=== PATIENT | female | born 1990 | race Caucasian/White ===

== ENCOUNTER 2023-10-16 09:44 | Inpatient (IN) | payer OTHER ==
[~2023-10-16] VITALS: Ht 154.9 cm; Wt 65.4 kg
[2023-10-16] VITALS (18 sets, daily range): BP systolic 100–151; BP diastolic 59–87; O2SAT 99
[2023-10-16] MEDS ORDERED: TUMS750C5 PO (10:12)
[2023-10-16] MEDS ORDERED: PEPC1TAB5 PO (10:12)
[2023-10-16] MEDS ORDERED: MULTTAB20 PO (10:12)
[2023-10-16] MEDS ORDERED: HOME MED LIST COMPLETE! XX SCH (10:15)
[2023-10-16] MEDS ORDERED: TRANEXAMIC ACID INJection 1,000 MG in NS 100 ML IV PRN (10:40)
[2023-10-16] MEDS ORDERED: OXYTOCIN INJ 10UNITS/ML 1ML VIAL IM PRN (10:40)
[2023-10-16] MEDS ORDERED: PENICILLIN G POTASSIUM 5 MU IV 5 MU in D5W MINI-BAG PLUS 100 ML IV STA (10:40)
[2023-10-16] MEDS ORDERED: LIDOCAINE 1% MDV 20ML VIAL INFIL PRN (10:40)
[2023-10-16] MEDS ORDERED: OXYTOCIN DRIP 30 UNITS in IV 1 EA IV PRN ×4 (10:40)
[2023-10-16] MEDS ORDERED: LACTATED RINGER'S 1000 ML IV STA (10:40)
[2023-10-16] MEDS ORDERED: METHYLERGONOVINE MALEATE 0.2MG/ML 1ML VIAL IM PRN (10:40)
[2023-10-16] MEDS ORDERED: CARBOPROST TROMETHAMINE 250 MCG/ML AMP IM PRN (10:40)
[2023-10-16 11:24] LABS: HEMOGLOBIN 14.9 g/dl (12.0-15.5); MEAN CORPUSCULAR HEMOGLOBIN 31.6 pg (27.0-33.0); MEAN CORPUSCULAR HGB CONC 34.7 g/dl (32.0-36.5); MEAN CORPUSCULAR VOLUME 91.3 fl (80.0-96.0); PLATELET COUNT, AUTOMATED 238 10^3/uL (150-450); RED BLOOD COUNT 4.71 10^6/uL (4.00-5.40); WHITE BLOOD COUNT 14.2 10^3/uL (4.0-10.0)
[2023-10-16 11:51] LABS: ALT/SGPT 18 U/L (7.0-40); AST/SGOT 26 U/L (<34); BILIRUBIN,TOTAL 0.4 MG/DL (0.3-1.2); CREATININE FOR GFR 0.61 MG/DL (0.55-1.30); GLOMERULAR FILTRATION RATE > 60.0 (>60); LDH LACTATE DEHYDROGENASE 253 U/L (120-246)
[2023-10-16 11:52] LABS: URIC ACID 7.1 MG/DL (3.1-7.8)
[2023-10-16] MEDS ORDERED: DIBUCAINE 1% OINTMENT 30GM TOP PRN (12:00)
[2023-10-16] MEDS ORDERED: OXYTOCIN DRIP 30 UNITS in IV 1 EA IV SCH (12:00)
[2023-10-16] MEDS ORDERED: ACETAMINOPHEN TAB 650MG DOSE (2X325MG) PO PRN (12:00)
[2023-10-16] MEDS ORDERED: DOCUSATE SODIUM 100MG CAPSULE PO PRN (12:00)
[2023-10-16] MEDS ORDERED: METHYLERGONOVINE MALEATE 0.2 MG TAB PO PRN (12:00)
[2023-10-16] MEDS ORDERED: IBUPROFEN 600MG TAB PO PRN (12:00)
[2023-10-16] MEDS ORDERED: HYDROCORTISONE 1% CREAM 30GM TOP PRN (12:00)
[2023-10-16] MEDS: LR 1,000 ML IV SCH ×2 (13:17→18:40)
[2023-10-16] MEDS: IBUPROFEN 800 MG TAB PO PRN ×2 (14:14→22:26)
[2023-10-16] MEDS ORDERED: PEN G POT 3,000,000 UNIT/50 ML 3,000,000 UNIT in IV 1 EA IV SCH (14:40)
[2023-10-16] MEDS ORDERED: ceFAZolin SOD 2 GM in IV 1 EA IV ONE (15:35)
[2023-10-16] MEDS: ACETAMINOPHEN 500 MG TAB PO PRN (15:41)
[2023-10-16] MEDS: METHYLERGONOVINE MALEATE 0.2 MG TAB PO SCH ×2 (15:50→22:26)
[2023-10-17] MEDS: METHYLERGONOVINE MALEATE 0.2 MG TAB PO SCH ×2 (04:07→10:20)
[2023-10-17 06:00] VITALS: BP 110/68; O2SAT 96
[2023-10-17] MEDS: PRENATAL VITAMINS CHEWABLE TABLET PO SCH (08:39)
[2023-10-17] MEDS: IBUPROFEN 800 MG TAB PO PRN ×2 (08:39→20:03)
[2023-10-17 18:00] VITALS: BP 102/66; O2SAT 100
[2023-10-18] MEDS: ACETAMINOPHEN 500 MG TAB PO PRN (05:47)
[2023-10-18 06:00] VITALS: BP 108/57; O2SAT 97
[2023-10-18] MEDS: PRENATAL VITAMINS CHEWABLE TABLET PO SCH (08:43)
== END 2023-10-18 12:50 | disposition home or self-care (01) | DRG 806 ==
LOC: M LDO 09:44 → M LDI 10:40 → M OBS 17:03
PROVIDERS: ADMIT Obstetrics & Gynecology; ATTEND Advanced Practice Midwife
PROC: 10E0XZZ Delivery of Products of Conception, External Approach (ICD-10-PCS; principal; 2023-10-16)
PROC: 0HQ9XZZ Repair Perineum Skin, External Approach (ICD-10-PCS; 2023-10-16)
DX: O24.420 Gestational diabetes mellitus in childbirth, diet controlled (principal); Z37.0 Single live birth; O72.1 Other immediate postpartum hemorrhage; O99.824 Streptococcus B carrier state complicating childbirth; Z3A.39 39 weeks gestation of pregnancy; O70.0 First degree perineal laceration during delivery

== ENCOUNTER → 2024-06-05 | Outpatient (CLI) | payer OTHER ==
[~2024-06-05] MED LIST: MULTTAB20 PO; PEPC1TAB5 PO; TUMS750C5 PO
[2024-06-05 16:14] LABS: HEMATOCRIT 40.3 % (36.0-47.0); HEMOGLOBIN 14.1 g/dl (12.0-15.5); MEAN CORPUSCULAR HEMOGLOBIN 31.8 pg (27.0-33.0); MEAN CORPUSCULAR VOLUME 90.8 fl (80.0-96.0); PLATELET COUNT, AUTOMATED 308 10^3/uL (150-450); RED BLOOD COUNT 4.44 10^6/uL (4.00-5.40); WHITE BLOOD COUNT 11.2 10^3/uL (4.0-10.0)
[2024-06-05 16:48] LABS: HIV 1&2 SCREEN NEGATIVE (NEGATIVE)
[2024-06-05 16:56] LABS: HEPATITIS C VIRUS ABY INDEX 0.04 INDEX (<0.8)
[2024-06-05 17:09] LABS: GC DNA AMPLIFICATION NEGATIVE (NEGATIVE)
== END ==
LOC: M PLALAB 12:07
PROVIDERS: ATTEND Obstetrics & Gynecology
DX: Z34.91 Encounter for supervision of normal pregnancy, unspecified, first trimester (principal)

== ENCOUNTER → 2024-06-23 | Outpatient (CLI) | payer OTHER | LOC: M PLALAB 11:12 | PROVIDERS: ATTEND Obstetrics & Gynecology | DX: Z34.91 Encounter for supervision of normal pregnancy, unspecified, first trimester (principal) ==

== ENCOUNTER → 2024-08-29 | Outpatient (CLI) | payer OTHER | LOC: M WHC 10:34 | PROVIDERS: ATTEND Obstetrics & Gynecology | DX: Z34.82 Encounter for supervision of other normal pregnancy, second trimester (principal); Z3A.20 20 weeks gestation of pregnancy ==

== ENCOUNTER → 2024-09-15 | Outpatient (CLI) | payer OTHER | LOC: M WHC 11:14 | PROVIDERS: ATTEND Obstetrics & Gynecology | DX: O32.1XX0 Maternal care for breech presentation, not applicable or unspecified (principal); Z3A.23 23 weeks gestation of pregnancy ==

== ENCOUNTER → 2024-09-24 | Outpatient (CLI) | payer OTHER ==
[2024-09-24 13:09] LABS: GLUCOSE CHALLENGE TEST 1 HOUR 95 MG/DL (LESS THAN 140); HEMATOCRIT 37.2 % (36.0-47.0); HEMOGLOBIN 12.7 g/dl (12.0-15.5); MEAN CORPUSCULAR HEMOGLOBIN 32.6 pg (27.0-33.0); MEAN CORPUSCULAR HGB CONC 34.1 g/dl (32.0-36.5); MEAN CORPUSCULAR VOLUME 95.4 fl (80.0-96.0); PLATELET COUNT, AUTOMATED 232 10^3/uL (150-450); WHITE BLOOD COUNT 9.5 10^3/uL (4.0-10.0)
[2024-09-25 18:49] LABS: HIV 1&2 SCREEN NEGATIVE (NEGATIVE)
[2024-09-25 18:50] LABS: HEPATITIS C VIRUS ABY INDEX 0.05 INDEX (<0.8)
== END ==
LOC: M PLALAB 08:53
PROVIDERS: ATTEND Advanced Practice Midwife
DX: Z34.82 Encounter for supervision of other normal pregnancy, second trimester (principal)

== ENCOUNTER → 2024-12-12 | Outpatient (REF) | payer OTHER | LOC: M SFHCWAGY 09:41 | PROVIDERS: ATTEND Advanced Practice Midwife | DX: Z34.83 Encounter for supervision of other normal pregnancy, third trimester (principal) ==

== ENCOUNTER 2025-01-12 19:07 | Inpatient (IN) | payer OTHER ==
[2025-01-12] VITALS (9 sets, daily range): BP systolic 106–124; BP diastolic 58–72; O2SAT 97
[~2025-01-12] VITALS: Ht 154.9 cm; Wt 67.4 kg
[2025-01-12] MEDS ORDERED: ONDA-282 PO (19:17)
[2025-01-12] MEDS ORDERED: LIDOCAINE 1% MDV 20ML VIAL INFIL PRN (19:20)
[2025-01-12] MEDS ORDERED: OXYTOCIN DRIP 30 UNITS in IV 1 EA IV PRN (19:20)
[2025-01-12] MEDS ORDERED: CARBOPROST TROMETHAMINE 250 MCG/ML AMP IM PRN (19:20)
[2025-01-12] MEDS ORDERED: OXYTOCIN INJ 10UNITS/ML 1ML VIAL IM PRN (19:20)
[2025-01-12] MEDS ORDERED: HOME MED LIST COMPLETE! XX SCH (19:20)
[2025-01-12] MEDS ORDERED: METHYLERGONOVINE MALEATE 0.2MG/ML 1ML VIAL IM PRN (19:20)
[2025-01-12 19:51] LABS: HEMOGLOBIN 15.7 g/dl (12.0-15.5); MEAN CORPUSCULAR HEMOGLOBIN 32.3 pg (27.0-33.0); MEAN CORPUSCULAR HGB CONC 34.9 g/dl (32.0-36.5); MEAN CORPUSCULAR VOLUME 92.6 fl (80.0-96.0); PLATELET COUNT, AUTOMATED 242 10^3/uL (150-450); RED BLOOD COUNT 4.86 10^6/uL (4.00-5.40); WHITE BLOOD COUNT 13.4 10^3/uL (4.0-10.0)
[2025-01-12 20:38] LABS: HIV 1&2 SCREEN NEGATIVE (NEGATIVE)
[2025-01-12 20:46] LABS: HEPATITIS C VIRUS ABY INDEX 0.13 INDEX (<0.8)
[2025-01-12] MEDS: OXYTOCIN DRIP 30 UNITS in IV 1 EA IV PRN (20:47)
[2025-01-12] MEDS: TRANEXAMIC ACID INJection 1,000 MG in NS 100 ML IV PRN (20:55)
[2025-01-12] MEDS ORDERED: ANUSOL HC CREAM 30GM TOP PRN (21:00)
[2025-01-12] MEDS ORDERED: RHOGAM 300MCG (1500IU) INJ IM SCH (21:00)
[2025-01-12] MEDS ORDERED: METHYLERGONOVINE MALEATE 0.2 MG TAB PO PRN (21:00)
[2025-01-12] MEDS: ACETAMINOPHEN 325 MG TAB PO PRN (23:29)
[2025-01-12] MEDS: DIBUCAINE 1% OINTMENT 30GM TOP PRN (23:30)
[2025-01-13] MEDS: IBUPROFEN 600MG TAB PO PRN (00:28)
[2025-01-13 05:56] VITALS: BP 98/63; O2SAT 96
[2025-01-13] MEDS: IBUPROFEN 800 MG TAB PO PRN (06:39)
[2025-01-13] MEDS: PRENATAL VITAMINS CHEWABLE TABLET PO SCH (08:20)
[2025-01-13] MEDS: ACETAMINOPHEN 500 MG TAB PO PRN (12:20)
[2025-01-13] MEDS: MEASLES,MUMPS,RUBELLA VACCINE INJ (MMR-II) SC.IMMUN ONE (13:49)
[2025-01-13 18:00] VITALS: BP 105/63; O2SAT 97
[2025-01-13] MEDS: DOCUSATE SODIUM 100MG CAPSULE PO PRN (20:15)
[2025-01-14 06:00] VITALS: BP 124/77; O2SAT 98
== END 2025-01-14 11:42 | disposition home or self-care (01) | DRG 807 ==
LOC: M LDO 19:07 → M LDI 19:24 → M OBS 23:03
PROVIDERS: ADMIT Advanced Practice Midwife; ATTEND Advanced Practice Midwife
PROC: 10E0XZZ Delivery of Products of Conception, External Approach (ICD-10-PCS; principal; 2025-01-12)
DX: O48.0 Post-term pregnancy (principal); Z37.0 Single live birth; Z3A.40 40 weeks gestation of pregnancy; O32.6XX0 Maternal care for compound presentation, not applicable or unspecified